=== PATIENT | male | born 1970 | race Caucasian/White ===

== ENCOUNTER → 2023-09-09 09:06 | Outpatient (REF) | payer OTHER, SELFPAY | LOC: RCS 09:06 | PROVIDERS: ATTENDING PHYSICIAN Internal Medicine Cardiovascular Disease; FAMILY PHYSICIAN Family Medicine | DX: I50.22 Chronic systolic (congestive) heart failure (principal); I42.9 Cardiomyopathy, unspecified; I10 Essential (primary) hypertension | CPT/HCPCS: 93307; Q9957 ==

== ENCOUNTER 2024-02-16 06:14 | Day surgery (SDC) | payer OTHER, SELFPAY ==
[2024-02-16 14:03] VITALS: BMI 39.4
[2024-02-16 14:04] VITALS: BMI 39.4
[2024-02-16 15:42] VITALS: BP 109/63
[2024-02-16 15:45] VITALS: BP 104/67
[2024-02-16 16:00] VITALS: BP 124/68
== END 2024-02-16 16:20 | disposition home or self-care (01) ==
LOC: SDS 06:14
PROVIDERS: ATTENDING PHYSICIAN Surgery
DX: Z12.11 Encounter for screening for malignant neoplasm of colon (principal); D12.3 Benign neoplasm of transverse colon; K62.89 Other specified diseases of anus and rectum; K64.8 Other hemorrhoids
CPT/HCPCS: 45385; 88305

== ENCOUNTER 2024-03-11 05:47 | Day surgery (SDC) | payer OTHER, SELFPAY ==
[2024-03-07 07:24] VITALS: BMI 39.4
[2024-03-07 10:47] LABS: Hematocrit 46.9 % (39.0-52.0); Hemoglobin 15.1 g/dL (13.0-18.0); Mean Corp Hgb Conc. 32.2 g/dL (33.0-37.0); Mean Corpuscular Hgb 27.9 pg (27.0-31.0); Mean Corpuscular Volume 86.5 fL (80.0-94.0); Mean Platelet Volume 11.3 fL (7.4-10.4); Platelet Count 267 10^3/uL (130-400); Red Blood Cell Count 5.42 10^6/uL (4.70-6.10); Red Cell Dist. Width 14.2 % (11.5-14.5); White Blood Cell Count 9.3 10^3/uL (4.8-10.8)
[2024-03-07 10:57] LABS: INR 1.01; PT 13.2 Sec (11.4-14.6)
[2024-03-07 10:58] LABS: APTT 28.9 Sec (23.4-35.0)
[2024-03-07 11:16] LABS: ALT (SGPT) 18 U/L (0-50); AST (SGOT) 16 U/L (17-59); Albumin 3.8 g/dl (3.5-5.0); Alkaline Phosphatase 76 U/L (38-126); Blood Urea Nitrogen 18 mg/dl (9-20); Calcium 8.9 mg/dl (8.4-10.2); Carbon Dioxide 24 mmol/L (22-30); Chloride 105 mmol/L (98-107); Estimated Creatinine Clearance > 125 ml/min; Glucose 100 mg/dl (70-99); Sodium 142 mmol/L (135-145); Total Bilirubin 0.3 mg/dl (0.2-1.3); Total Protein 6.6 g/dl (6.3-8.2); eGFR > 60.00
[2024-03-11] VITALS (7 sets, daily range): BP systolic 88–137; BP diastolic 62–83; BMI 39.4
[2024-03-11] MEDS: TYLENOL 1000 MG PO (12:37)
[2024-03-11] MEDS: CELEBREX 200 MG PO (12:37)
[2024-03-11] MEDS: NORMOSOL-R/PLASMALYTE-A 1000 IV (13:06)
--- NOTE | 2024-03-11 15:14 | W.IMMPOSTOP ---
Surgical Immed Post Op Note
-
Primary Surgeon: Donnie Schmitt MD
Assisting Surgeon: MILDRED Mena
Pre-op Diagnosis: Rectal polyp
Post-op Diagnosis: Anal fissure associated with rectal polyp (possible anal papilla)
Procedure Performed: Exam under anesthesia, transanal excision of rectal polyp, fissurectomy
Anesthesia Type: Sedation with local
Specimen / Cultures: Rectal polyp
Estimated Blood Loss: 5 mL
Complications: None
Operative Findings: Identified a large anal fissure, about 1 to 2 cm wide and 4 cm in length in the PML with exposed internal sphincter; large pedunculated lesion associated with the proximal edge of the fissure, consistent with the rectal polyp
seen on colonoscopy, more likely an anal papilla; fulgurated granulation tissue of fissure base; excised pedunculated lesion and place Surgicel at the operative site
--- NOTE | 2024-03-11 15:19 | OR.RPT ---
Operative Report
Operative Report
DATE OF OPERATION: 03/11/2024
SURGEON: Donnie Schmitt MD
PREOPERATIVE DIAGNOSIS: Rectal polyp
POSTOPERATIVE DIAGNOSIS: Anal fissure with pedunculated lesion, likely anal papilla
OPERATION: Exam under anesthesia, transanal excision of pedunculated lesion, fissurectomy, bilateral pudendal nerve block
ASSISTANTS:
1. MILDRED Purvis
ANESTHESIA: MAC w/ local
ESTIMATED BLOOD LOSS: 5 mL
FINDINGS:
1. Large posterior midline anal fissure, about 2 cm wide and 4 cm in length, extending slightly beyond the dentate line
2. Large pedunculated lesion at the proximal edge of the anal fissure, most consistent with an enlarged anal papilla, but could be portion of rectal polyp
SPECIMENS:
1. Rectal polyp, rule out anal papilla
DRAINS: N/A
COMPLICATIONS: None
INDICATIONS: The patient is a 54-year-old male who initially presented to me with perianal pain, most consistent with anal fissure. Due to the deep gluteal cleft, this was difficult to directly visualize on bedside anoscopy in the office. At that
time, the pain was minimal, so conservative measures were recommended. He underwent a screening colonoscopy and was found to have a rectal polyp within 1 to 2 cm of the anorectal ring. Therefore, the patient was recommended to have surgery to
remove the polyp with adequate margins and to evaluate for any anorectal pathology. The operation was discussed with the patient in detail, including the risks, benefits and alternatives. Risks described included, but not limited to bleeding,
infection, urinary retention, damage to nearby structures such as the anal sphincter, fecal incontinence, anal stenosis, inability to resect the polyp completely and anesthetic risks. The patient understood and agreed to proceed. The consent was
signed and placed in the chart.
PROCEDURE IN DETAIL: The patient was taken to the operating room. The patient was then placed on the operating table in prone position. Sequential compression devices were placed bilaterally. Sedation was commenced without complication. Two seat
belts were secured around the legs and upper back. The buttocks were taped apart. The perineum was shaved, prepped and draped in the usual fashion. A time-out was then performed verifying the correct patient, procedure, operative site,
positioning, and special equipment.
Local anesthesia used was a mixture of 60 mL of 0.25% Marcaine with epinephrine and 0.6 mg of dexamethasone. 40 mL was injected perianally at the beginning of the case. The anorectal exam was performed assessing all four quadrants of the anal canal
using Hill-Lorenz retractors in progressively increasing size. Immediately identified was a large posterior midline anal fissure. The fissure measured about 2 cm at its widest extent and spanned about 4 cm in length, from the anal verge to just
proximal to the dentate line. There was exposed internal sphincter muscle with some granulation tissue on the base of the fissure. At the apex of the fissure, the proximal margin, there was a pedunculated lesion that was consistent with the rectal
polyp identified on colonoscopy. With this better visualization of the anorectal anatomy and the associated anal fissure, this pedunculated lesion is most consistent with an anal papilla. However, to confirm the diagnosis, I proceeded with
excision of this pedunculated lesion. No other anorectal pathology was noted except a minimal internal hemorrhoid in the left lateral position without inflammation or bleeding. There was no proctitis.
Using the largest Hill-Lorenz retractor, the pedunculated lesion was exposed. About 5 mL of 1% lidocaine with epi was injected in the submucosal space under the pedunculated lesion. I marked out the margins by scoring the anal mucosa with
electrocautery at the edges of the stalk. I elevated the polyp and used electrocautery to excise the lesion along the submucosal space, avoiding injury to the underlying sphincter muscle. The lesion was passed off for specimen. Hemostasis was
achieved with electrocautery. The remaining defect was small and associated with the proximal margin of the fissure. Therefore, I left this open. To promote wound healing, I fulgurated the base of the anal fissure with Bovie electrocautery.
The remaining 20 mL of local were injected. 5 mL was injected bilaterally for a pudendal nerve block. 10 mL was injected around the surgical site and perianally. Hemostasis was reassessed once more using the medium Hill-Lorenz and was confirmed.
Surgicel was placed in the operative site prophylactically.
At this point, the procedure was complete. All needle, sponge and instrument counts were correct. The patient tolerated the procedure well and was transferred to the recovery room in stable condition with gauze dressing in place secured with silk
tape.
Of note, MILDRED Purvis, oncology physician assistant, was necessary during this procedure for traction, countertraction, and exploratory purposes. I was present for the entire duration of the case.
DICTATED BY: Donnie Schmitt MD
== END 2024-03-11 16:15 | disposition home or self-care (01) ==
LOC: SDS 05:47
PROVIDERS: ATTENDING PHYSICIAN Surgery; FAMILY PHYSICIAN Family Medicine
DX: K60.2 Anal fissure, unspecified (principal); K62.89 Other specified diseases of anus and rectum; K62.1 Rectal polyp; K62.0 Anal polyp
CPT/HCPCS: 46200; 88305; 36415; 71046; 80053; 85027; 85610; 85730; 86850; 86900; 86901; 93005

== ENCOUNTER → 2024-07-05 11:15 | Outpatient (REF) | payer BC, SELFPAY ==
--- NOTE | 2024-07-05 12:24 | CARDSERVLU ---
Echocardiogram with Lumason completed after protocol screening completed. Allergies verified.
Patent IV site: _Left median antecubital 22 G PC, site clear____
IV site flushed with 0.9% NaCl pre and post administration.
Diluted bolus method utilized to enhance visualization of ventricular wang.
Total volume given: 3.5____ mL
Patient tolerated all procedures well without complications.
Heplock D/C ed at 1205, site clear. Pressure held, no bleeding, 2x2 applied and taped. Pt offers no complaints.
== END ==
LOC: RCS 11:15
PROVIDERS: ATTENDING PHYSICIAN Internal Medicine Cardiovascular Disease; FAMILY PHYSICIAN Family Medicine
DX: I42.9 Cardiomyopathy, unspecified (principal)
CPT/HCPCS: 93306; Q9950

== ENCOUNTER 2025-01-06 06:04 | Day surgery (SDC) | payer BC, SELFPAY ==
[2025-01-06] VITALS (16 sets, daily range): BP systolic 97–118; BP diastolic 55–72; BMI 40.7
[2025-01-06 09:09] LABS: ACT-LR - POC 192 Seconds (116-155)
[2025-01-06 09:19] LABS: ACT-LR - POC 221 Seconds (116-155)
[2025-01-06 09:30] LABS: ACT-LR - POC 236 Seconds (116-155)
[2025-01-06 09:37] LABS: ACT-LR - POC 236 Seconds (116-155)
--- NOTE | 2025-01-06 11:23 | ITS.CL.CATH ---
Pug Machine Operator - Catheterization
Cardiac Catheterization
Procedure Report:
RIGHT AND LEFT HEART STUDY
Date of Procedure: January 06, 2025
Referring: Dr. Conchita Nolen
PROCEDURES:
1. Right heart catheterization
2. Left heart catheterization with coronary and single-plane left ventriculography
3. Hemodynamic assessment of ramus intermedius and the right coronary artery using a [employer] Verrata wire. The iFR in both vessels measured well above the ischemic threshold
INDICATION: This is a 54-year-old gentleman with a past medical history notable for a nonischemic cardiomyopathy. His last catheterization in 2002 was notable for no significant coronary artery disease. He recently had discharge of his ICD on 2
occasion with concern for possible torsades de points. He is now referred for coronary angiography
ACCESS: Right radial artery, 6 Belarusian sheath and right brachial vein, 6 Belarusian sheath. Ultrasound guidance was utilized for both access sites.
HEMODYNAMICS : mmHg
RA (m) : 12
RV (s/d) : 27 3, 8
PA (s/d, m) : 24/14, 18
PCWP (m) : 16
AO (s/d, m) : 123/73, 96
LV (s/d) : 124/12
LVEDP : 18
Estimated Pancho Cardiac Output: 6.9 L / min and Cardiac Index: 2.8 L/ min / m-2
Systemic vascular resistance: 12.2 Wood units or 974 [id number](-5)
Pulmonary vascular resistance: 0.3 Wood units or 23 [id number](-5)
CORONARY FINDINGS :
Dominance: Right
LEFT MAIN: Normal
LEFT ANTERIOR DESCENDING: The LAD arises normally from the left main and runs in the anterior interventricular groove. The LAD has minor irregularities but no focal obstructive stenoses. 2 large diagonal branches arise from the proximal and mid
LAD. The first diagonal branch has a smooth 50% ostial stenosis and the second diagonal branch has diffuse nonfocal luminal irregularities.
RAMUS: The ramus intermedius arises from the left main as a large-caliber vessel that bifurcates in its midportion. There is a proximal 60-65% stenosis. The mid ramus bifurcates into 2 sizable daughter branches that are widely patent. A [place]
wire was utilized to assess the stenotic segment for hemodynamic significance. A [employer] Verrata wire was advanced to the guide catheter tip and normalized to the guide catheter pressure. The IFR serially measured above the ischemic threshold at
0.97 x 3. The Verrata wire was withdrawn to the guide catheter tip where the Pd/Pa measured 1.0 confirming no baseline drift
CIRCUMFLEX: The circumflex is small and supplies a small terminal obtuse marginal branch
RIGHT CORONARY ARTERY: The right coronary artery has a large caliber dominant vessel with a 50% proximal stenosis and 30% stenosis in the mid vessel. The posterolateral branch is large. The PDA is a medium caliber vessel. A [employer] Verrata wire
was utilized to assess the proximal and mid RCA stenosis to determine if they were hemodynamically significant. The IFR serially measured above the ischemic threshold at 0.99 x 3. The Verrata wire was retracted to the guide catheter tip where the
Pd/Pa measured 0.99 confirming no baseline drift
VENTRICULOGRAPHY: Left ventriculography is performed in SELLERS projection. The digital single-plane left ventricular ejection fraction is estimated at 15-20%. The ventricle is globally hypokinetic
SEDATION: 63 minutes of procedural sedation was utilized. An independent medical secretary receptionist was present to assist with and help manage the patient's level of consciousness and physiologic status
RADIATION SUMMARY: Fluoro Time (min): 9.5, Dose (mGy): 747, DAP (Gy.cm2) : 54.8
CONCLUSIONS
1. There has been some progression of coronary artery disease in a large ramus intermedius and in the proximal right coronary artery. However, both vessels were assessed and neither of the stenotic segments were found to be hemodynamically
significant with the iFR in the ramus intermedius measuring 0.97 and 0.99 in the RCA
2. Compensated right and left ventricular filling pressures
3. Dilated cardiomyopathy with severe LV dysfunction
RECOMMENDATIONS
1. Continue guideline directed medical therapy. Results will be reviewed with Dr. Conchita Nolen
Copy to: Dr. Conchita Nolen
== END 2025-01-06 13:00 | disposition home or self-care (01) ==
LOC: CATH 06:04
PROVIDERS: ATTENDING PHYSICIAN Internal Medicine Interventional Cardiology; FAMILY PHYSICIAN Family Medicine; OTHER PHYSICIAN Internal Medicine Cardiovascular Disease
DX: I25.10 Atherosclerotic heart disease of native coronary artery without angina pectoris (principal); I42.8 Other cardiomyopathies; I47.29 Other ventricular tachycardia; I50.20 Unspecified systolic (congestive) heart failure; Z79.810 Long term (current) use of selective estrogen receptor modulators (SERMs); E66.9 Obesity, unspecified; R73.02 Impaired glucose tolerance (oral); Z79.84 Long term (current) use of oral hypoglycemic drugs; Z79.85 Long-term (current) use of injectable non-insulin antidiabetic drugs; Z79.899 Other long term (current) drug therapy
CPT/HCPCS: 99152; 99153; 93799 ×2; 85347; 93460; C1769; C1894; Q9967

== ENCOUNTER → 2025-03-22 09:48 | Outpatient (REF) | payer BC, SELFPAY | LOC: MRI 09:48 | PROVIDERS: ATTENDING PHYSICIAN Internal Medicine Cardiovascular Disease; FAMILY PHYSICIAN Family Medicine | DX: I47.29 Other ventricular tachycardia (principal); I42.9 Cardiomyopathy, unspecified | CPT/HCPCS: 75561; A9585 ==

== ENCOUNTER 2025-03-29 11:07 | Day surgery (SDC) | payer BC, SELFPAY ==
[2025-03-13 10:54] LABS: INR 1.04; PT 13.9 Sec (11.4-14.6)
[2025-03-13 10:57] LABS: Hematocrit 47.6 % (39.0-52.0); Hemoglobin 15.3 g/dL (13.0-18.0); Mean Corp Hgb Conc. 32.1 g/dL (33.0-37.0); Mean Corpuscular Volume 89.5 fL (80.0-94.0); Nucleated Red Blood Cells % 0 % (-); Platelet Count 267 10^3/uL (130-400); Red Cell Dist. Width 13.6 % (11.5-14.5)
[2025-03-13 11:20] LABS: ALT (SGPT) 30 U/L (0-50); AST (SGOT) 23 U/L (17-59); Albumin 4.1 g/dl (3.5-5.0); Alkaline Phosphatase 74 U/L (38-126); Blood Urea Nitrogen 15 mg/dl (9-20); Calcium 8.9 mg/dl (8.4-10.2); Carbon Dioxide 29 mmol/L (22-30); Chloride 105 mmol/L (98-107); Glucose 96 mg/dl (70-99); Magnesium 2.1 mg/dl (1.6-2.3); Potassium 4.4 mmol/L (3.5-5.1); Sodium 140 mmol/L (135-145); Total Protein 7.0 g/dl (6.3-8.2); eGFR > 60.00
[2025-03-13 13:18] VITALS: BMI 43.3
[2025-03-29] VITALS (14 sets, daily range): BP systolic 101–125; BP diastolic 59–81; BMI 43.3
--- NOTE | 2025-03-29 16:11 | W.PN.UPDATE ---
Update Note
Progress Note Update
Electrophysiology procedure report
Date: March 29, 2025
Procedure note:
Please see separate EPS report from Dr. Nolen who is power screwdriver operator for the procedure and will detail the entirety of the procedure. I served as general office assistant for the procedure.
Device interrogation and reprogramming was performed at end of procedure with VF zone of 200, VT zone of 182 and a monitor zone at 167 with DDDR. The patient has underlying rhythm. Was present for the entirety of the procedure focusing on
electrogram activation, morphology of PVC, and ventricular sensing and pacing. Both right and left ventricles were mapped by Dr. Nolen demonstrating that left ventricular activation to be late for clinical PVC and earliest activation was
approximately 10 ms late from the inferoapical septum of the LV. Clinical PVC was left bundle left superior with a V5 V6 transition with a second PVC which was very similar with a reversed pattern break in V1 and V3. Mapping the right ventricular
septum and moderator band there were areas of Purkinje fibers about the moderator band which were also contiguous to the pericardium which appeared echo bright with intracardiac ultrasound. With pacing there was some fractionation in the signal in
the moderator band and in sinus rhythm without ventricular pacing there was Purkinje activation in this region which was 50 ms early with a 12 out of 12 pace map match from the moderator band. Intracardiac ultrasound was also utilized to image
direct contact with the 9 mm Lattice catheter. Lesions in this region by Dr. Nolen illuminated the patient's clinical PVCs. Patient tolerated the procedure well without pericardial effusion post procedure.
--- NOTE | 2025-03-29 16:36 | PTCARENOTE ---
Pt received from blood bank laboratory technician s/p VT ablation. Drowsy but oriented x 3. V-paced on tele, HR 70s. SpO2 95% on 4L. BP 114/65. R groin with fo8 suture and gauze/tegaderm dressing. Dressing with small amount of drainage. R groin soft, no hematoma noted. R
dorsalis pedis pulse palpable and RLE neurovascular checks WDL. Fo8 suture to be removed at 1900. Pt remains on bedrest at this time, education provided about activity restrictions. Call wright in reach.
--- NOTE | 2025-03-29 16:56 | ITS.CL.ABL ---
Third Loader - Ablation
Ablation
Procedure Report:
ELECTROPHYSIOLOGY AND ABLATION REPORT
Date of Procedure: March 29, 2025
Primary care provider: Oskar Robles MD
Primary locomotive driver: Dr Conchita Nolen
engineering equipment operator: Dr Sin Nolen
fruit loader machine operator: Dr Vito Rebollar
INDICATION:
Catheter ablation of VT associated with structural heart disease is associated with a reduction in the odds of appropriate ICD therapies, appropriate ICD shocks, VT storm and cardiac hospitalizations.
HISTORY:
Complex medical history which has included recurrent sustained hemodynamically unstable polymorphic VT and VF.
His clinical history includes noninfarct related cardiomyopathy with severe left ventricular systolic dysfunction.
Initial ICD implantation was primary prevention indication April 16, 2012, GREY GOODS TESTER defibrillator, [employer]tr[employer]. He underwent ICD generator change January 08, 2018
He has had sustained ventricular tachyarrhythmia requiring ICD shocks dating back to July 2023, subsequently with nonsustained VT and more recently had recurrent VT requiring ICD shock while on amiodarone, this was at the end of November 2024.
This prompted additional evaluation which included coronary angiography performed on January 06, 2025 finding moderate RCA and ramus intermedius disease but no hemodynamically significant stenosis by iFR.
He underwent cardiac MRI 03/22/2025 finding no evidence of infiltrative disorder and no focal areas of abnormal enhancement/scarring. LVEF 20-25%.
He presents to the laboratory today for mapping and ablation of sustained hemodynamic and stable ventricular tachyarrhythmia which by review his device diagnostics is primarily polymorphic VT and VF. Unable to locate initiation of polymorphic VT
and VF on stored EGM device diagnostics.
Review of ECGs finds occasional PVCs. 2 morphologies. The dominant morphology is a left bundle left superior axis with precordial transition at lead V6. There is a second PVC less frequent demonstrating precordial pattern break at lead V2�lead V3
but otherwise similar in morphology.
PROCEDURE:
The [employer]tr[employer] GREY GOODS TESTER defibrillator was interrogated and found to have a normal function. Tachycardia detection is reprogrammed to off. Ventricular pacing is reprogrammed to RV pacing only. Base pacing rate is increased from 50-70.
Ultrasound Guidance with real-time visualization of needle insertion and vessel patency performed by ct for femoral venous Vascular Access. Images were taken and saved for the patient's permanent record. Imaging findings typical femoral venous
anatomy. Direct visualization of needle puncture into the femoral vein was observed and recorded.
A quadripolar catheter was positioned at the RV apex.
Intracardiac echo (ICE) catheter was positioned to provide echocardiographic real-time imaging for catheter navigation and ablation catheter positioning as well as to assess for any traumatic cardiac injury during the procedure.
After right femoral arterial access was obtained a retrograde transaortic approach was used to navigate the severe 9 RF/PFA mapping and ablation catheter across the aortic valve into the left ventricle.
Isoproterenol infusion was begun.
Clinical PVCs were observed.
Mapping of the clinical PVCs finds the left ventricle to be very late, nothing pre-QRS.
Mapping is performed via [employer] 3-D electroanatomical mapping system
Mapping was then performed of the right ventricle with finding of earliest activation of the clinical PVC at the moderator band at the right ventricle towards its lateral wall insertion. At this location there is leading Purkinje fiber electrogram
and earliest activation of the clinical PVC is 50 ms pre-QRS. Pace mapping was performed and produced a 12 out of 12 match. Intracardiac echocardiogram was used to assist in catheter navigation and positioning on the moderator band.
A combination of initially RF energy then followed by delivery of PFA eliminated all PVCs.
The sphere 9 lattice catheter was transiently entrapped at the moderator band but with gentle tension this was freed up from its entrapment. There was never any hemodynamic compromise. Imaging with intracardiac echocardiogram found no pericardial
effusion around the right ventricle or the left ventricle. Additionally there is no echocardiographic evidence for injury to any papillary muscle. Doppler findings trace tricuspid regurgitation.
Given that there was effective elimination of the clinical and likely triggering PVC from the moderator band isoproterenol was then discontinued and the procedure was then completed.
The [employer] GREY [employer] TESTER defibrillator was interrogated and found to have normal stable function compared to the preablation state. Additionally fluoroscopic imaging after catheters were removed finds no change in the fluoroscopic appearance of the leads.
Reprogramming of the ICD was performed. In addition to reprogramming back to baseline parameters (effective GREY [employer] TESTER, DDDR 50�1 30), an additional VT zone was programmed. Now there is a VF zone at 200 bpm and a VT zone at 182 bpm. VT monitor zone is
programmed to 167 bpm.
COMPLICATIONS: None
SUMMARY:
Mapping and ablation of ventricular tachycardia
EPS with drug infusion
Interrogation as well as reprogramming of GREY GOODS TESTER/multichamber defibrillator.
Intracardiac echocardiogram
Three-dimensional electroanatomical mapping
Ultrasound guided vascular access.
RECOMMENDATIONS:
- Maintain amiodarone at current dose. I will then reassess him in 3 to 4 months and if he is had no further ventricular tachyarrhythmias we will then consider having a dose of amiodarone from 200 mg to 100 mg daily. Thereafter if he remains
arrhythmia free for the following 6 months there can be consideration for discontinuation of amiodarone.
- Maintain guideline directed medical therapy for heart failure with reduced ejection fraction (carvedilol 25 mg twice daily, Entresto 97-103 mg twice daily, spironolactone 25 mg once daily, Jardiance 10 mg once daily and furosemide 40 mg once daily)
( tells me that amlodipine 5 mg once daily was discontinued by his PCP over concern for lower extremity edema)
- Office visit with me is scheduled for July 27, 2025
- Office visit with his primary locomotive driver, Dr Conchita Nolen, is scheduled for September 22, 2025
Copy to:
Primary care provider: Oskar Robles MD
Primary locomotive driver: Dr Conchita Nolen
[2025-03-29] MEDS: COREG 25 MG PO (20:26)
[2025-03-29] MEDS: ENTRESTO 97 MG/103 MG 1 TAB PO (20:26)
--- NOTE | 2025-03-29 22:05 | PTCARENOTE ---
Figure eight removed, positive pulse and sensation throughout. Pt OOB with x 1 assist. Denies pain or any discomfort
[2025-03-30 03:13] VITALS: BP 98/62
[2025-03-30 03:31] VITALS: BMI 43.7
[2025-03-30 04:02] LABS: Hematocrit 45.9 % (39.0-52.0); Hemoglobin 14.7 g/dL (13.0-18.0); Mean Corp Hgb Conc. 32.0 g/dL (33.0-37.0); Mean Corpuscular Volume 90.0 fL (80.0-94.0); Platelet Count 251 10^3/uL (130-400); Red Cell Dist. Width 13.6 % (11.5-14.5)
[2025-03-30 04:24] LABS: Blood Urea Nitrogen 16 mg/dl (9-20); Calcium 8.5 mg/dl (8.4-10.2); Carbon Dioxide 26 mmol/L (22-30); Chloride 104 mmol/L (98-107); Estimated Creatinine Clearance > 125 ml/min; Glucose 130 mg/dl (70-99); Magnesium 2.0 mg/dl (1.6-2.3); Potassium 4.2 mmol/L (3.5-5.1); Sodium 138 mmol/L (135-145); eGFR > 60.00
[2025-03-30 07:14] VITALS: BP 104/63
[2025-03-30] MEDS: ALDACTONE 25 MG PO (08:55)
[2025-03-30] MEDS: LASIX 40 MG PO (08:55)
[2025-03-30] MEDS: PACERONE 200 MG PO (08:55)
[2025-03-30] MEDS: FARXIGA 10 MG PO (08:55)
[2025-03-30] MEDS: LIPITOR 20 MG PO (08:55)
[2025-03-30] MEDS: ENTRESTO 97 MG/103 MG 1 TAB PO (08:55)
[2025-03-30] MEDS: ASPIR LOW (ENTERIC COATED) 81 MG PO (08:55)
[2025-03-30] MEDS: COREG 25 MG PO (08:55)
--- NOTE | 2025-03-30 09:15 | W.PN.CARDCBS ---
Today's Communication / Plan
-
post VT ablation
stable for d/c home
Impression / Plan
-
Primary care provider: Oskar Robles MD
Primary driver trainee: Dr Conchita Nolen
Impression:
Recurrent sustained polymorphic VT and VF with ICD shocks
VT ablation 03/29/25
BiVICD implant 04/2012
Chronic HFrEF 20-25%
Non obstructive CAD by cath 12/2024
HTN
HLD
EVITA
Dilated Aortic root 4.5cm
DDD
Morbid obesity BMI 43
former smoker
Plan:
post ablation feels good
groin stable
tele AsVpaced, rare PVC
continue amiodarone 200mg daily, plan to decrease in 3 mo with possible d/c in 6mo
HF continue carvedilol, Entresto, spironolactone, Jardiance, and Lasix
Activity restrictions reviewed
f/u Dr. Meyer in 3 mo
home today
Progress Note - Investment Representative
Subjective
Date of Service: March 30, 2025
denies cp, sob, did not get any sleep
Objective
Labs:
03/30/25 03:15
03/30/25 03:15
Labs
Hgb 14.7 g/dL (13.0-18.0) 03/30/25 03:15
Hct 45.9 % (39.0-52.0) 03/30/25 03:15
Plt Count 251 10^3/uL (130-400) 03/30/25 03:15
PT 13.9 Sec (11.4-14.6) 03/13/25 09:58
INR 1.04 03/13/25 09:58
Sodium 138 mmol/L (135-145) 03/30/25 03:15
Potassium 4.2 mmol/L (3.5-5.1) 03/30/25 03:15
BUN 16 mg/dl (9-20) 03/30/25 03:15
Creatinine 0.7 mg/dL (0.7-1.3) 03/30/25 03:15
Glucose 130 mg/dl (70-99) H 03/30/25 03:15
Vital Signs and I&O:
Vital Signs
Temp Pulse Resp BP Pulse Ox
98.1 F 72 20 104/63 93
03/30/25 07:13 03/30/25 08:45 03/30/25 07:13 03/30/25 07:14 03/30/25 07:14
Vital Signs
Temp Pulse Resp BP Pulse Ox
98.1 F 72 20 104/63 93
03/30/25 07:13 03/30/25 08:45 03/30/25 07:13 03/30/25 07:14 03/30/25 07:14
Intake & Output
03/28/25 03/29/25 03/30/25 03/31/25
06:59 06:59 06:59 06:59
Intake Total 1650 / 1650
Balance 1650 / 1650
Physical Exam
Physical Exam
NAD, AOX3
S1, S2, RRR, I/ NIVIA
fine bibasilar crackles
SNTND bsx4
R fem site c/d/i no HT< scant ecchymosis
--- NOTE | 2025-03-30 09:50 | PTCARENOTE ---
Patient discharged to home. IV and telemetry removed. Discharge teaching provided, patient verbalized understanding. Patient escorted to main lobby in a wheelchair
--- NOTE | 2025-03-30 11:11 | CM ---
Chart reviewed. Patient is independent of ADLS, lives with his , renea mcghee. Plan is for the patient to return home.
--- NOTE | 2025-03-30 14:58 | W.DS.TRANS ---
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
-
Discharge Instructions:
Discharge Diagnosis/Procedures VT post ablation
Diet Low Cholesterol,2 Gram Sodium,Restrict fluids to
48 oz
[address] Restrictions No driving for 24 hours
Specialty Instructions Weigh Daily
Instructions:
Stand-Alone Forms: DC Instructions- Cath/EP Lab
Changes to Home Medications: No
Discharge Medications:
DC Medications w/original date entered in [facility]
carvedilol 25 mg tablet (Coreg) 25 mg PO BID 04/15/12
spironolactone 25 mg tablet 25 mg PO DAILY 04/15/12
aspirin 81 mg tablet 81 mg PO DAILY 01/06/25
atorvastatin 20 mg tablet 20 mg PO DAILY 01/06/25
empagliflozin 10 mg tablet (Jardiance) 10 mg PO DAILY 01/06/25
tirzepatide (weight loss) 5 mg/0.5 mL subcutaneous pen injector (Zepbound) 7.5 mg SC MO 01/06/25
amiodarone 200 mg tablet 200 mg PO DAILY 03/09/25
furosemide 40 mg tablet 40 mg PO DAILY 03/09/25
sacubitril 97 mg-valsartan 103 mg tablet (Entresto) 1 tab PO BID 03/09/25
Home Medication Changes
Pending Results: No
== END 2025-03-30 10:01 | disposition home or self-care (01) ==
LOC: CATH 11:07
PROVIDERS: Nurse Practitioner Adult Health; ATTENDING PHYSICIAN Internal Medicine Cardiovascular Disease; FAMILY PHYSICIAN Family Medicine; OTHER PHYSICIAN Internal Medicine Cardiovascular Disease
DX: I47.29 Other ventricular tachycardia (principal); I11.0 Hypertensive heart disease with heart failure; G47.33 Obstructive sleep apnea (adult) (pediatric); F40.240 Claustrophobia; E78.5 Hyperlipidemia, unspecified; E66.01 Morbid (severe) obesity due to excess calories; Z68.41 Body mass index [BMI] 40.0-44.9, adult; I25.10 Atherosclerotic heart disease of native coronary artery without angina pectoris; Z87.891 Personal history of nicotine dependence; M54.30 Sciatica, unspecified side; Z79.899 Other long term (current) drug therapy; Z79.82 Long term (current) use of aspirin; Z79.84 Long term (current) use of oral hypoglycemic drugs; Z79.85 Long-term (current) use of injectable non-insulin antidiabetic drugs; I50.22 Chronic systolic (congestive) heart failure; I42.9 Cardiomyopathy, unspecified; I77.810 Thoracic aortic ectasia
CPT/HCPCS: C1733; C1730; C1894; C1769; C1766; C1892; 36415; 80048; 80053; 83735; 85025; 85027; 85347; 85610; 86850; 86900; 86901; 93005; 93623; 93654